=== PATIENT | female | born 1995 | race African-American/Black ===

== ENCOUNTER 2021-09-02 07:57 | Emergency (ER) | payer MEDICAID, OTHER ==
[~2021-09-02] VITALS: Ht 165.1 cm; Wt 91.6 kg
[2021-09-02 08:39] VITALS: BP 113/71
[2021-09-02] MEDS ORDERED: IBUPROFEN 800 MG TAB PO ONE (08:45)
== END 2021-09-02 08:59 | disposition home or self-care (01) ==
LOC: ER 07:57
DX: S29.012A Strain of muscle and tendon of back wall of thorax, initial encounter (principal); X58.XXXA Exposure to other specified factors, initial encounter; Y93.89 Activity, other specified; Y92.89 Other specified places as the place of occurrence of the external cause; Y99.8 Other external cause status
CPT/HCPCS: 72070